=== PATIENT | female | born 1930 | race African-American/Black ===

== ENCOUNTER 2017-08-01 13:33 | Emergency (ER) | payer MEDICARE, MEDICAID ==
[~2017-08-01] VITALS: Ht 170.2 cm; Wt 80.0 kg
[2017-08-01 13:38] VITALS: BP 147/98
[2017-08-01] MEDS ORDERED: ACETAMINOPHEN 325MG TABLET PO ONE (15:15)
== END 2017-08-01 16:55 | disposition home or self-care (01) ==
LOC: ER 13:51
DX: S09.90XA Unspecified injury of head, initial encounter (principal); M75.111 Incomplete rotator cuff tear or rupture of right shoulder, not specified as traumatic; M54.2 Cervicalgia; J45.909 Unspecified asthma, uncomplicated; I10 Essential (primary) hypertension; K21.9 Gastro-esophageal reflux disease without esophagitis; I73.9 Peripheral vascular disease, unspecified; Z88.5 Allergy status to narcotic agent; W19.XXXA Unspecified fall, initial encounter; Y93.89 Activity, other specified; Y92.091 Bathroom in other non-institutional residence as the place of occurrence of the external cause; Y99.8 Other external cause status
CPT/HCPCS: 70450; 73030; 99284

== ENCOUNTER 2017-10-22 19:26 | Emergency (ER) | payer MEDICARE, MEDICAID ==
[~2017-10-22] VITALS: Ht 157.5 cm; Wt 73.0 kg
[~2017-10-22 19:26] MED LIST: AMLO5TAB4 PO; CYPR4TAB33 PO; ERGO2000 PO; FOLI-43 PO; FURO-152 PO; GABA-531 PO; MIRA50TA PO; MIRT15TA PO; MOME13HF INH; OMEP20TA2 PO; POTA10CA42 PO; TEMA15CA PO; TLXL5 GT
[2017-10-23 01:13] LABS: BASOPHILS % 0.8 % (0.0-2.0); HEMATOCRIT. 36.9 % (36.0-48.0); HEMOGLOBIN. 11.8 g/dL (12.0-16.0); LYMPHOCYTES % 18.8 % (20.0-50.0); MEAN CORPUSCULAR HEMOGLOBIN 28.8 pg (28.0-32.0); MEAN CORPUSCULAR VOLUME 90.1 fL (81.0-99.0); MEAN PLATELET VOLUME 8.8 fl (7.4-10.4); MONOCYTES % 12.8 % (2.0-8.0); NEUTROPHILS % 63.6 % (40.0-76.0); PLATELET 218 x1000/uL (130-400); RED CELL DISTRIBUTION WIDTH 14.5 % (11.6-14.6)
[2017-10-23 01:18] LABS: CHLORIDE 104 mEq/L (98-107)
[2017-10-23 01:26] LABS: INR 1.1; PROTHROMBIN TIME 11.4 sec (9.4-11.6)
[2017-10-23] MEDS ORDERED: AZITHROMYCIN 500 MG TABLET PO ONE (03:00)
[2017-10-23] MEDS ORDERED: AZITHROMYCIN 500 MG in DEXT 5% WATER 250 ML IV SCH (03:00)
[2017-10-23] MEDS ORDERED: CEFTRIAXONE 1 G PREMIX 50 ML IV ONE (03:00)
[2017-10-23 03:05] VITALS: BP 131/83
== END 2017-10-23 03:08 | disposition home or self-care (01) ==
LOC: ER 19:26
DX: J18.9 Pneumonia, unspecified organism (principal); J45.909 Unspecified asthma, uncomplicated; R04.2 Hemoptysis; Z88.5 Allergy status to narcotic agent; Z88.8 Allergy status to other drugs, medicaments and biological substances
CPT/HCPCS: 36415; 71045; 80053; 85025; 85610; 99285